=== PATIENT | female | born 1990 | race Caucasian/White ===

== ENCOUNTER 2018-12-09 05:58 | Inpatient (IN) | payer BC, OTHER ==
[~2018-12-09] VITALS: Ht 179.1 cm; Wt 92.7 kg
[2018-12-09] VITALS (29 sets, daily range): BP systolic 88–112; BP diastolic 50–77; PULSE 54–75; RESP 10–20; Ht 179.1 cm; Wt 92.7 kg
[~2018-12-09 05:58] MED LIST: KEF250S PO; SULF20OR7 PO
[2018-12-09] MEDS ORDERED: CEFAZOLIN 2 GM/50 ML (PMX) 50 ML IVPB SCH (06:00)
--- NOTE | 2018-12-09 07:18 | HPN ---
Date/Time of Note Date/Time of Note DATE: 12/09/18 TIME: 07:18 Interval H&P Admission Note Pt. seen H&P reviewed: No system changes CHAUNCEY PHILIP MD Dec 09, 2018 07:18
[2018-12-09] MEDS: LACTATED RINGER'S 1,000 ML IV SCH ×3 (07:20→19:14)
--- NOTE | 2018-12-09 07:24 | PREAC ---
Date/Time of Note Date/Time of Note DATE: 12/09/18 TIME: 07:22 Anesthesia Eval and Record Evaluation Time Pre-Procedure Interview DATE: 12/09/18 TIME: 07:22 Age 28 Sex female NPO: 8 hrs Preoperative diagnosis left ovarian cyst Planned procedure EXP LAP, LEFT OVARIAN CYSTECTOMY, VS LSO Past Medical History Past Medical History: None Surgery & Anesthesia Issues No known issue Meds Anticoagulation: No Beta Gael within 24 hr: No Reason Beta Gael not given: Pt. not on B-Gael Discontinued Scripts Cephalexin* (Keflex* Susp) 50 Mg/Ml Susp, 10 ML PO Q6 for 7 Days, BOTTLE Prov:TRAVISTRISTIANMEMO DO 12/24/15 Sulfamethoxazole/Trimethoprim (Sulfatrim 800-160 mg/20 ml Marla) 20 Ml Oral.susp, 20 ML PO BID for 7 Days, BOTTLE Prov:TRAVIS,MEMO DO 12/24/15 Current Medications Lactated Ringer's 1,000 ml @ 25 mls/hr Q24H IV Last administered on 12/09/18at 07:20; Admin Dose 25 MLS/HR; Start 12/09/18 at 06:00; Stop 12/10/18 at 21:59 Meds reviewed: Yes Allergies Coded Allergies: No Known Allergy (Unverified , 12/09/18) Allergies Reviewed: Yes Labs/Studies Labs Reviewed: Reviewed by anesthesiologist Blood Bank Test 12/09/18 00:00 Blood Product Summary Counts test: Negative Pre-procedure Exam Last vitals Vital Signs Date Temp Pulse Resp B/P (MAP) Pulse Ox O2 O2 Flow FiO2 Time Delivery Rate 12/09/18 98.5 72 18 112/77 100 Room Air 07:12 (89) Airway: Adequate mouth opening, Adequate thyromental dist Mallampati: Mallampati II Teeth: Normal Lung: Normal Heart: Normal ASA Physical Status ASA physical status: 1 Emergency: None Planned Anesthetic General/MAC: ETT Planned Pain Management Sub-arachniod narcotics, Parenteral pain med Pre-operative Attestations Prior to commencing anesthesia and surgery, the patient was re-evaluated, there was verification of: *The patient's identity *The results of appropriate recent lab work and preoperative vital signs *The above evaluation not changing prior to induction *Anesthetic plan, risk benefits, alternative and complications discussed with patient/family; questions answered; patient/family understands, accepts and wishes to proceed. Michael Sanders M.D. Dec 09, 2018 07:24
[2018-12-09] MEDS ORDERED: GLYCOPYRROLATE 0.4 MG INJ ONE (07:38)
[2018-12-09] MEDS ORDERED: CEFAZOLIN 1 GM INJ ONE (07:38)
[2018-12-09] MEDS ORDERED: ROCURONIUM 50 MG INJ ONE (07:38)
[2018-12-09] MEDS ORDERED: NEOSTIGMINE 3 MG/3 ML SYRINGE ONE (07:38)
[2018-12-09] MEDS ORDERED: PROPOFOL 20 ML ONE (07:38)
[2018-12-09] MEDS ORDERED: MIDAZOLAM 1 MG/ML 2 ML INJ ONE (07:39)
[2018-12-09] MEDS ORDERED: morphine SULFATE/PF (10 MG/10 ML) INJ ONE (07:39)
[2018-12-09] MEDS ORDERED: FENTAnyl 50 MCG/ML VIAL ONE ×2 (07:39→09:48)
[2018-12-09] MEDS ORDERED: DEXAMETHASONE 4 MG/ML 5 ML INJ ONE (07:39)
[2018-12-09] MEDS ORDERED: ONDANSETRON 4 MG INJ ONE (07:39)
--- NOTE | 2018-12-09 09:46 | SIPON ---
Date/Time of Note Date/Time of Note DATE: 12/09/18 TIME: 09:33 Operative Report Preoperative Diagnosis left ovarian cyst ( dermoid) Postoperative Diagnosis see path report left ovarian cyst one large 6cm second less than 1cm cyst rt ovarian cyst small leaking Operation/Procedure Performed exp lap left ovaian cystectomies excision of left ovaian fibroma rt ovarian biopsy Surgeon see signature line assistant baseball coach reiche Anesthesia: general, spinal Estimated blood loss: 10 - 50 ml's Transfusion Required none Specimen x2 left ovarian cysts X1 left ovarian tumor(fibroma) right ovarian biopsy Grafts/Implants none Complications none CHAUNCEY PHILIP MD Dec 09, 2018 09:46
[2018-12-09] MEDS ORDERED: FENTAnyl 50 MCG/ML VIAL IV PRN ×2 (10:00)
[2018-12-09] MEDS: FENTAnyl 50 MCG/ML VIAL IV PRN ×2 (10:01→10:09)
[2018-12-09] MEDS: IBUPROFEN 600 MG TAB PO SCH ×2 (11:12→18:00)
--- NOTE | 2018-12-09 11:42 | PAC ---
Date/Time of Note Date/Time of Note DATE: 12/09/18 TIME: 11:41 Post-Anesthesia Notes Post-Anesthesia Note Last documented vital signs Vital Signs Date Temp Pulse Resp B/P (MAP) Pulse Ox O2 O2 Flow FiO2 Time Delivery Rate 12/09/18 60 14 96/60 (72) 100 Room Air 10:46 12/09/18 2.0 09:51 12/09/18 98.4 09:28 Activity: WNL Respiratory function: WNL Cardiovascular function: WNL Mental status: Baseline Pain reasonably controlled: Yes Hydration appropriate: Yes Nausea/Vomiting absent: Yes Michael Sanders M.D. Dec 09, 2018 11:42
[2018-12-09] MEDS ORDERED: NALOXONE (0.4 MG/ML) INJ IV PRN (12:00)
[2018-12-09] MEDS ORDERED: DESFLURANE 15 MIN ONE (16:00)
[2018-12-09] MEDS: ACETAMINOPHEN 325 MG TAB PO PRN (21:53)
[2018-12-10] MEDS: IBUPROFEN 600 MG TAB PO SCH ×3 (01:37→17:47)
[2018-12-10 04:34] VITALS: BP 95/56; PULSE 66; RESP 18
[2018-12-10] MEDS: LACTATED RINGER'S 1,000 ML IV SCH ×3 (05:47→15:41)
[2018-12-10 07:16] VITALS: BP 100/67; PULSE 64; RESP 14
[2018-12-10 15:00] VITALS: BP 110/61; PULSE 92; RESP 16
[2018-12-10] MEDS: ACETAMINOPHEN 325 MG TAB PO PRN (15:06)
[2018-12-10 19:25] VITALS: BP 99/54; PULSE 86; RESP 20
--- NOTE | 2018-12-10 20:42 | OPR ---
DATE OF OPERATION: 12/09/2018 PREOPERATIVE DIAGNOSIS: Left dermoid cyst. POSTOPERATIVE DIAGNOSIS: 1. Left dermoid cyst. 2. Left ovarian fibroma. 3. Right ovarian cyst. ANESTHESIA: Spinal for the postoperative pain management and general. ANESTHESIOLOGIST: Dr. Sanders. SURGEON: Bernadine Singer MD SHELL MOLD BONDING MACHINE OPERATOR: Gaston Mcfarlane MD ESTIMATED BLOOD LOSS: Less than 20 mL. SPONGE COUNT: Correct. PROCEDURE: Under proper induction of spinal anesthesia and for the pain management. The patient was placed in the frog position. Cardenas catheter was introduced into the bladder under sterile condition and repositioned to supine. Abdominal wall was prepped and draped in usual aseptic manner. A trans verse incision was made approximately 7 cm in the middle portion of the previous incisional scar from the tummy tuck and scar tissue was removed. Incision was carried down through the subcutaneous tiss ue to the anterior recti fascia, which was incised in the length of the incision. The Tevdek suture was removed in the process of getting into the fascia and the fascial flap was created by blunt and s harp dissection of tendinous attachment upward and downward. Two rectus muscles split in the midline . Peritoneal cavity was entered. Digital pelvic exploration done. On the left, ovarian cyst was pa lpated, which was same as the ultrasound described approximately 6 cm, maybe 7 cm in diameter and the surface was smooth. There was no . The right ovary was felt to be normal in size, except the one area was a little cystic and free of adhesion inside. The Ike, small size, was introduced in order to help exposure and the patient was placed in the Trendelenburg position. Left ovary was brou ght out through the Ike by using [place] and delivered out to the operative field. A shallow incis ion was made on the ovary and cortex and this ovarian cyst was enucleated without rupturing and entir e ovarian cyst was removed without rupturing and the picture was taken and sent to pathology. While closing the hilum and also the defect area using 2-0 chromic SH needle in continuous horizontal mattr ess manner. It was noticed a very tiny, less than 1 cm, very hard nodule on the cortex of the ovary, which was also taken out. It seems to be ovarian fibroma, which was sent separately. Prior to clos ing the ovarian defect, there was a cystic structure which was on the base and also was removed, whic h was less than 1 cm sent with the main larger size of the cyst together and the ovarian fibroma was sent separately. After closing the ovary, a piece of Interceed was attached to the defect area. The n, right side ovary was checked and the cystic structure was some leaking and bleeding little bit whi susan trying to deliver out to the field which the area was grasped and the biopsied because of the bila terality of the dermoid cyst and then a piece of the ovarian tissue was sent to pathology where the l eakage was noted, but it seems to be most likely related with ovulation. After biopsy done, defect a jose ramon was closed with 2-0 chromic catgut and no bleeding was noted. A piece of Surgicel was again cove red the defect area for prevention of adhesion. All the blood was removed from the peritoneal cavity , which was very scanty with using saline irrigation. The parietal peritoneum was closed using 0 chromic catgut in continuous manner, muscle closed with 0 chromic catgut in continuous manner. Fa scia closed with a #1 Vicryl in continuous manner in 2 segments. Subcutaneous tissue irrigated. Thi s layer was approximated with a 2-0 plain in continuous manner after adequate hemostasis was secured. Skin was closed with a 3-0 Monocryl in subcuticular manner. Steri-Strip applied. A pressure dress ing applied. Estimated blood loss less than 20 mL. The patient withstood the procedure well and was sent to the recovery room in stable condition. Dictated By: BERNADINE DIAZ/CASH Conf#: [id number] DID#: [id number] CC: GASTON MCFARLANE MD; BERNADINE SINGER MD;*EndCC*
[2018-12-10] MEDS ORDERED: LIDOCAINE 2% VISC 15 ML CUP PO ONE (22:00)
[2018-12-10] MEDS ORDERED: DIPHENHYDRAMINE 25 MG CAP PO PRN (22:00)
--- NOTE | 2018-12-10 22:06 | QN ---
Documentation Comment c/o gas pain and right neck pain VSS afebrile abdomen soft wound dry calf neg A stable post exp lap ans left ovarian cystectomy P discharge home in am CHAUNCEY PHILIP MD Dec 10, 2018 22:06
--- NOTE | 2018-12-10 22:08 | PD.PPDC ---
[employer] Discharge Instruction Diagnosis [id number] Final Diagnosis: [id number] left ovarian cyst Condition [id number] Patient Condition: Nfijx7r Stable Diet Lokmj1Cu Diet: Aurji0p Resume Regular Diet Activity/Restrictions Qvewf4Na Activity: Geufc6o May Shower Fwyno6Uo Restrictions: Ckrzf5x No Sexual Activity Nothing in the Vagina No Maili No Tampons, douche Wound/Drain Care Instructions 2 [id number] Wound/Drain Care Ekrsp1e Remove Steri Strips in 2 Instructions: weeks Wash with soap and water Keep clean and dry Follow-up Follow-up with Physician: 2, Week/Weeks Return to clinic for Cawem4Cd NEONATAL SPECIALIST Instructions: Uvkwq6c Fever greater than 101 Chills Worsening abdominal pain Excessive Vaginal Bleeding More than 2 pads per hour Unable to tolerate diet Eeeoq5Qs Surgical Instructions: Duusj8s Incisional Drainage Incisional Redness CHAUNCEY PHILIP MD Dec 10, 2018 22:08
[2018-12-11] MEDS: IBUPROFEN 600 MG TAB PO SCH ×2 (02:00→10:46)
[2018-12-11 02:10] VITALS: BP 97/60; PULSE 86; RESP 18
[2018-12-11] MEDS: LACTATED RINGER'S 1,000 ML IV SCH (02:21)
[2018-12-11] MEDS: ACETAMINOPHEN 325 MG TAB PO PRN (04:27)
[2018-12-11 08:15] VITALS: BP 110/65; PULSE 86; RESP 18
== END 2018-12-11 11:37 | disposition home or self-care (01) | DRG 743 ==
LOC: REC 06:22 → MS1 10:47
PROVIDERS: ADMIT Obstetrics & Gynecology; ATTEND Obstetrics & Gynecology
PROC: 0UB00ZX Excision of Right Ovary, Open Approach, Diagnostic (ICD-10-PCS; 2018-12-09)
PROC: 0UB10ZZ Excision of Left Ovary, Open Approach (ICD-10-PCS; principal; 2018-12-09 07:30)
DX: D27.1 Benign neoplasm of left ovary (principal); D27.0 Benign neoplasm of right ovary; N83.202 Unspecified ovarian cyst, left side
CPT/HCPCS: 81001; 85025; 86850; 86900; 86901; 86920; 87086; 88305; J0690; J1100; J2250; J2274; J2405; J2710; J3010; J7120